=== PATIENT | male | born 1930 | race Caucasian/White ===

== ENCOUNTER → 2017-02-03 | Outpatient (CLI) | payer MEDICARE, BC ==
[~2017-02-03] MED LIST: ACID CONTROLLER20 MG PO; AMARYL2 MG PO; APRESOLINE PO; ARANESP SUBQ; ASCORBIC ACID500 M2 PO; ASPIRIN PO; ASPIRIN81 M2 PO; CALCITRIOL0.25 MCG PO; CALCIUM ACETAT667 M1 PO; CARDURA4 M1 PO; CERTAGEN PO; COLACE50 MG PO; DILTIAZEM 24HR120 MG PO; DOC-Q-LACE100 MG PO; DOCUSATE SODIU100 MG PO; FERROUS GLUCON324 M1 PO; FERROUS SU325 ( 65 ) PO; FISH OIL 1,0001 CAP PO; FISH OIL CONC1000 MG; FISH OIL CONC1000 MG PO; FLOMAX0.4 M1 PO; GLUCOSAMINE500 M1 PO; HYDROCODON-ACE1 EAC9 PO; LASIX PO; LASIX20 MG PO; LEVAQUIN PO; LISINOPRIL PO; LISINOPRIL10 MG PO; LYRICA100 MG PO; MILK OF MAGNESIA PO; MULTI-VITAMIN1 EAC1 PO; NORCO 5/325 TAB1 TAB PO; PHOSLO667 MG PO; RENVELA800 MG PO; STARLIX PO; ULTRAM PO; VIT B-12 PO; VITAMIN D1000 UNI1 PO; VITAMIN D1000 UNIT PO; ZOCOR PO; ZOCOR20 MG PO
[2017-02-03 16:56] LABS: HEMATOCRIT 27.5 % (38.0-50.0)
== END | disposition home or self-care (01) ==
LOC: CSSDAY 16:22
PROVIDERS: Internal Medicine Nephrology
DX: N18.4 Chronic kidney disease, stage 4 (severe) (principal); D63.1 Anemia in chronic kidney disease; Z79.899 Other long term (current) drug therapy
CPT/HCPCS: 85014; 85018; 96372; J0881

== ENCOUNTER → 2017-02-24 | Outpatient (CLI) | payer MEDICARE, BC ==
[2017-02-24 10:50] LABS: HEMATOCRIT 27.1 % (38.0-50.0); HEMOGLOBIN 8.8 gm/dL (13.0-16.0)
== END | disposition home or self-care (01) ==
LOC: CSSDAY 10:13
PROVIDERS: Internal Medicine Nephrology
DX: N18.4 Chronic kidney disease, stage 4 (severe) (principal); D63.1 Anemia in chronic kidney disease; Z79.899 Other long term (current) drug therapy
CPT/HCPCS: 36415; 85014; 85018; 96372; 96374; J0881; Q0138

== ENCOUNTER → 2017-03-04 | Outpatient (CLI) | payer MEDICARE, BC | END | disposition home or self-care (01) | LOC: CSSDAY 10:52 | DX: N18.4 Chronic kidney disease, stage 4 (severe) (principal); D63.1 Anemia in chronic kidney disease; Z79.899 Other long term (current) drug therapy | CPT/HCPCS: 96374; Q0138 ==

== ENCOUNTER → 2017-03-10 | Outpatient (CLI) | payer MEDICARE, BC ==
[2017-03-10 09:59] LABS: BASOPHIL% 0.4 % (0-2.5); EOSINOPHIL# 0.6 X10e3 (0-0.7); EOSINOPHIL% 6.3 % (0.0-7.0); HEMATOCRIT 31.2 % (38.0-50.0); HEMOGLOBIN 10.1 gm/dL (13.0-16.0); LYMPHOCYTE# 2.9 X10e3 (1.0-3.5); LYMPHOCYTE% 30.3 % (17.0-45.0); MEAN CELL VOLUME 92.5 FL (83-96); MEAN CORPUSCULAR HEMOGLOBIN 29.8 PG (28-34); MEAN CORPUSCULAR HGB CONC 32.2 g/dL (30-36); MEAN PLATELET VOLUME 8.7 FL (6.5-11.5); MONOCYTE# 0.9 X10e3 (0-1.0); MONOCYTE% 9.6 % (3.0-12.0); NEUTROPHIL# 5.1 X10e3 (1.5-7.1); NEUTROPHIL% 53.4 % (40-75); PLATELET COUNT 217 X10e3 (140-420); RED BLOOD COUNT 3.37 X10e (3.90-5.60); RED CELL DISTRIBUTION WIDTH 15.9 % (11.0-15.5); WHITE BLOOD COUNT 9.6 X10e3 (4.0-10.5)
[2017-03-10 10:00] LABS: DIFF IND NO
[2017-03-10 11:14] LABS: ALBUMIN SERUM 3.5 g/dL (3.5-5.0); BILIRUBIN,TOTAL 0.4 mg/dL (0.2-2.0); BUN/CREATININE RATIO 20.27; CALCIUM SERUM 8.7 mg/dL (8.4-10.2); CREATININE SERUM 3.7 mg/dL (0.6-1.4); GLOM FILT RATE Estimated 14.1 mL/min (>60); PROTEIN TOTAL SERUM 6.1 g/dL (6.0-8.3); URIC ACID 6.9 mg/dL (2.6-7.2)
[2017-03-10 11:33] LABS: FOLATE (FOLIC ACID) 9.1 ng/mL (>5.8)
[2017-03-13 15:50] LABS: CALCIUM (PTHINTACT) 8.8 mg/dL (8.6-10.3)
== END | disposition home or self-care (01) ==
LOC: CLAB 09:16
PROVIDERS: Internal Medicine Nephrology
DX: N18.4 Chronic kidney disease, stage 4 (severe) (principal); D63.1 Anemia in chronic kidney disease
CPT/HCPCS: 36415; 80053; 82306; 82310; 82607; 82728; 82746; 83540; 83550; 83970; 84100; 84550; 85025; 96372; J0881; Q0138

== ENCOUNTER → 2017-04-06 | Outpatient (CLI) | payer MEDICARE, BC ==
[2017-04-06 09:16] LABS: BASOPHIL% 0.2 % (0-2.5); EOSINOPHIL# 0.5 X10e3 (0-0.7); EOSINOPHIL% 5.4 % (0.0-7.0); HEMATOCRIT 31.7 % (38.0-50.0); HEMOGLOBIN 10.2 gm/dL (13.0-16.0); LYMPHOCYTE# 3.3 X10e3 (1.0-3.5); LYMPHOCYTE% 36.2 % (17.0-45.0); MEAN CELL VOLUME 93.9 FL (83-96); MEAN CORPUSCULAR HEMOGLOBIN 30.2 PG (28-34); MEAN CORPUSCULAR HGB CONC 32.2 g/dL (30-36); MONOCYTE# 0.8 X10e3 (0-1.0); MONOCYTE% 9.2 % (3.0-12.0); NEUTROPHIL# 4.4 X10e3 (1.5-7.1); PLATELET COUNT 194 X10e3 (140-420); RED BLOOD COUNT 3.37 X10e (3.90-5.60); RED CELL DISTRIBUTION WIDTH 14.5 % (11.0-15.5)
[2017-04-06 09:19] LABS: DIFF IND NO
[2017-04-06 09:58] LABS: ALBUMIN SERUM 3.5 g/dL (3.5-5.0); BILIRUBIN,TOTAL 0.7 mg/dL (0.2-2.0); BUN/CREATININE RATIO 22.3; CALCIUM SERUM 8.6 mg/dL (8.4-10.2); CREATININE SERUM 3.9 mg/dL (0.6-1.4); GLOM FILT RATE Estimated 13.2 mL/min (>60); PHOSPHOROUS 6.2 mg/dL (2.5-4.6); POTASSIUM 4.3 mmol/L (3.5-5.1); PROTEIN TOTAL SERUM 5.8 g/dL (6.0-8.3); URIC ACID 6.4 mg/dL (2.6-7.2)
[2017-04-11 05:59] LABS: CALCIUM (PTHINTACT) 8.7 mg/dL (8.6-10.3)
== END | disposition home or self-care (01) ==
LOC: CSSDAY 08:00 → CLAB 08:23 → CSSDAY 04-07 08:00
PROVIDERS: Internal Medicine Nephrology
DX: N18.4 Chronic kidney disease, stage 4 (severe) (principal); D63.1 Anemia in chronic kidney disease
CPT/HCPCS: 36415; 80053; 82306; 82310; 82607; 82728; 82746; 83540; 83550; 83970; 84100; 84550; 85025; 96372; J0881

== ENCOUNTER → 2017-05-04 | Outpatient (CLI) | payer MEDICARE, BC ==
[2017-05-04 13:28] LABS: HEMATOCRIT 32.6 % (38.0-50.0); HEMOGLOBIN 10.4 gm/dL (13.0-16.0)
[2017-05-04 14:44] LABS: BUN/CREATININE RATIO 25.29; CALCIUM SERUM 8.9 mg/dL (8.4-10.2); CREATININE SERUM 3.4 mg/dL (0.6-1.4); GLOM FILT RATE Estimated 15.6 mL/min (>60); POTASSIUM 5.1 mmol/L (3.5-5.1)
== END | disposition home or self-care (01) ==
LOC: CSSDAY 10:00
PROVIDERS: Internal Medicine Nephrology
DX: N18.4 Chronic kidney disease, stage 4 (severe) (principal); D63.1 Anemia in chronic kidney disease; Z79.899 Other long term (current) drug therapy
CPT/HCPCS: 36415; 80048; 85014; 85018; 96372; J0881

== ENCOUNTER → 2017-06-01 | Outpatient (CLI) | payer MEDICARE, BC ==
[2017-06-01 09:05] LABS: HEMOGLOBIN 10.5 gm/dL (13.0-16.0)
== END | disposition home or self-care (01) ==
LOC: CSSDAY 08:30
PROVIDERS: Internal Medicine Nephrology
DX: N18.4 Chronic kidney disease, stage 4 (severe) (principal); D63.1 Anemia in chronic kidney disease
CPT/HCPCS: 36415; 85014; 85018; 96372; J0881

== ENCOUNTER → 2017-06-29 | Outpatient (CLI) | payer MEDICARE, BC ==
[2017-06-29 09:14] LABS: BASOPHIL% 0.4 % (0-2.5); EOSINOPHIL# 0.7 X10e3 (0-0.7); EOSINOPHIL% 6.7 % (0.0-7.0); HEMATOCRIT 28.7 % (38.0-50.0); HEMOGLOBIN 9.3 gm/dL (13.0-16.0); LYMPHOCYTE# 3.2 X10e3 (1.0-3.5); LYMPHOCYTE% 32.3 % (17.0-45.0); MEAN CELL VOLUME 91.3 FL (83-96); MEAN CORPUSCULAR HEMOGLOBIN 29.4 PG (28-34); MEAN CORPUSCULAR HGB CONC 32.2 g/dL (30-36); MEAN PLATELET VOLUME 9.5 FL (6.5-11.5); MONOCYTE# 0.8 X10e3 (0-1.0); MONOCYTE% 7.8 % (3.0-12.0); NEUTROPHIL# 5.3 X10e3 (1.5-7.1); NEUTROPHIL% 52.8 % (40-75); PLATELET COUNT 208 X10e3 (140-420); RED BLOOD COUNT 3.14 X10e (3.90-5.60); RED CELL DISTRIBUTION WIDTH 13.8 % (11.0-15.5)
[2017-06-29 09:17] LABS: DIFF IND NO
[2017-06-29 10:08] LABS: ALBUMIN SERUM 3.4 g/dL (3.5-5.0); BILIRUBIN,TOTAL 0.5 mg/dL (0.2-2.0); BUN/CREATININE RATIO 17.95; CALCIUM SERUM 8.5 mg/dL (8.4-10.2); CREATININE SERUM 4.4 mg/dL (0.6-1.4); GLOM FILT RATE Estimated 11.4 mL/min (>60); PHOSPHOROUS 4.7 mg/dL (2.5-4.6); POTASSIUM 4.1 mmol/L (3.5-5.1); PROTEIN TOTAL SERUM 5.9 g/dL (6.0-8.3); URIC ACID 6.4 mg/dL (2.6-7.2)
[2017-06-29 10:22] LABS: FOLATE (FOLIC ACID) 11.2 ng/mL (>5.8)
[2017-07-02 09:09] LABS: CALCIUM (PTHINTACT) 8.7 mg/dL (8.6-10.3)
== END | disposition home or self-care (01) ==
LOC: CSSDAY 08:27
PROVIDERS: Internal Medicine Nephrology
DX: N18.4 Chronic kidney disease, stage 4 (severe) (principal); D63.1 Anemia in chronic kidney disease
CPT/HCPCS: 36415; 80053; 82306; 82310; 82607; 82728; 82746; 83540; 83550; 83970; 84100; 84550; 85025; 96372; J0881